=== PATIENT | female | born 1965 | race Caucasian/White ===

== ENCOUNTER → 2017-12-15 12:48 | Outpatient (CLI) | payer BC, SELFPAY ==
--- NOTE | 2017-12-15 | DI.MG.S_ITS ---
BILATERAL DIGITAL SCREENING MAMMOGRAM 3D/2D WITH CAD: 12/15/2017 CLINICAL: Routine screening. Family history of breast cancer. Comparison is made to exam dated: 03/03/2015 mammogram - [facility]. The tissue of both breasts is extremely dense, which lowers the sensitivity of mammography. Current study was also evaluated with a Computer Aided Detection (CAD) system. No significant masses, calcifications, or other findings are seen in either breast. There has been no significant interval change. IMPRESSION: NEGATIVE There is no mammographic evidence of malignancy. A 1 year screening mammogram is recommended. This exam was interpreted at Station ID: [id number]. NOTE: For mammograms, a report in lay terms will be sent to the patient. Approximately 15% of breast malignancies will not be visualized mammographically. In the management of a palpable breast mass, a negative mammogram must not discourage biopsy of a clinically suspicious lesion. Electronically Signed By: Jv mcgill/jose cruz:12/15/2017 16:31:28 letter sent: Normal Exam ACR BI-RADS Category 1: Negative [id number]
== END ==
PROVIDERS: Visit Provider Nurse Practitioner Family
DX: Z12.31 Encounter for screening mammogram for malignant neoplasm of breast (principal); Z80.3 Family history of malignant neoplasm of breast
CPT/HCPCS: 77063; 77067

== ENCOUNTER → 2017-12-20 14:09 | Outpatient (CLI) | payer BC, SELFPAY | PROVIDERS: Visit Provider Nurse Practitioner Family | DX: M85.852 Other specified disorders of bone density and structure, left thigh (principal); Z78.0 Asymptomatic menopausal state; F17.200 Nicotine dependence, unspecified, uncomplicated | CPT/HCPCS: 77080 ==

== ENCOUNTER → 2019-04-11 10:53 | Outpatient (CLI) | payer OTHER, SELFPAY ==
--- NOTE | 2019-04-11 10:57 | DI.RAD.S_ITS ---
PROCEDURE: XR CHEST 2V INDICATIONS: orthopnea, murmur, r/o CHF TECHNIQUE: 2 views of the chest were acquired. COMPARISON: None. FINDINGS: Surgical changes and devices: None. Lungs and pleura: There is mild cephalization of pulmonary vasculature and mild interstitial prominence including basilar Natalie B-lines compatible with CHF. No pleural effusions or pneumothorax. Mediastinum: Mediastinal contours are normal. Heart size is normal. Bones and chest wall: No suspicious bony abnormalities. Soft tissues appear unremarkable. IMPRESSION: CHF. Dictated by: Lina Epperson MD, PhD on 04/11/2019 at 11:46 Approved by: Lina Epperson MD, PhD on 04/11/2019 at 11:47
[2019-04-11 12:01] LABS: Add Manual Diff / Slide Review NO; Basophils Absolute Auto 100 /uL (0-100); Eosinophils Absolute Auto 200 /uL (0-450); Eosinophils Percent Auto 2.5 % (2-4); Hematocrit 42.3 % (36-46); Hemoglobin 14.6 g/dL (12.0-16.0); Lymphocytes Absolute Auto 1900 /uL (1100-4500); Lymphocytes Percent Auto 22.5 % (25-40); Mean Corpuscular HGB Conc 34.4 % (30-36); Mean Corpuscular Hemoglobin 33.4 PG (26-34); Mean Corpuscular Volume 97.2 fL (80-100); Monocytes Absolute Auto 600 /uL (0-900); Monocytes Percent Auto 7.6 % (3-14); Neutrophils Absolute Auto 5500 /uL (1500-7000); Neutrophils Percent Auto 66.4 % (50-75); Platelet Count 342 X10^3/uL (150-400); Red Blood Cell Count 4.35 X10^6/uL (4.0-5.2); Red Cell Distribution Width 12.7 % (11.6-14.8); White Blood Cell Count 8.3 X10^3/uL (4.5-11.0)
[2019-04-11 12:30] LABS: Alanine Aminotransferase 16 IU/L (<35); Albumin 4.4 g/dL (3.5-5.0); Albumin Globulin Ratio 1.7 (1.0-2.8); Alkaline Phosphatase 67 U/L (38-126); Aspartate Aminotransferase 22 IU/L (14-36); BUN Creatinine Ratio 21.3 (6-22); Bilirubin Total 0.9 mg/dL (0.2-1.3); Blood Urea Nitrogen 17 mg/dL (7-17); Calcium 10.1 mg/dL (8.4-10.2); Carbon Dioxide 28 mmol/L (22-32); Chloride 106 mmol/L (98-107); Estimated Glomerular Filt Rate > 60.0 mL/min (>60); Globulin 2.6 g/dL (1.7-4.1); Glucose 114 mg/dL (70-100); HEMOLYSIS < 15 (0-50); Potassium 5.3 mmol/L (3.4-5.1); Sodium 143 mmol/L (137-145)
[2019-04-11 12:36] LABS: B Type Natriuretic Peptide 139 (<100)
== END ==
PROVIDERS: Family Provider Nurse Practitioner Family; PCP Nurse Practitioner Family; Visit Provider Physician Assistant
DX: R06.01 Orthopnea (principal); R01.1 Cardiac murmur, unspecified; I50.9 Heart failure, unspecified
CPT/HCPCS: 36415; 71046; 80053; 83880; 85025

== ENCOUNTER 2019-04-12 14:47 | Emergency (ER) | payer OTHER, SELFPAY ==
[2019-04-12 14:55] VITALS: BP 129/96; PULSE 99; RESP 18; TEMP 37.5; O2SAT 94; BMI 28.8
--- NOTE | 2019-04-12 16:34 | DI.RAD.S_ITS ---
PROCEDURE: XR CHEST 1V INDICATIONS: SHORTNESS OF BREATH TECHNIQUE: One view of the chest was acquired. COMPARISON: [facility], CR, XR CHEST 2V, 04/11/2019, 10:58. FINDINGS: Surgical changes and devices: None. Lungs and pleura: Pulmonary vascular congestion is seen. No definite focal infiltrate. No pleural effusions or pneumothorax. Mediastinum: Mediastinal contours appear normal. Heart size is enlarged. Bones and chest wall: No suspicious bony lesions. Overlying soft tissues appear unremarkable. IMPRESSION: Cardiomegaly and mild congestion. No definite focal infiltrate. Dictated by: Alexander Maxwell M.D. on 04/12/2019 at 17:03 Approved by: Alexander Maxwell M.D. on 04/12/2019 at 17:06
[2019-04-12 16:55] LABS: Add Manual Diff / Slide Review NO; Basophils Absolute Auto 100 /uL (0-100); Basophils Percent Auto 1.2 % (0-2); Eosinophils Absolute Auto 200 /uL (0-450); Eosinophils Percent Auto 2.6 % (2-4); Hematocrit 43.5 % (36-46); Hemoglobin 14.8 g/dL (12.0-16.0); Lymphocytes Absolute Auto 2700 /uL (1100-4500); Lymphocytes Percent Auto 32.1 % (25-40); Mean Corpuscular HGB Conc 33.9 % (30-36); Mean Corpuscular Hemoglobin 32.6 PG (26-34); Mean Corpuscular Volume 96.2 fL (80-100); Monocytes Absolute Auto 700 /uL (0-900); Monocytes Percent Auto 7.9 % (3-14); Neutrophils Absolute Auto 4600 /uL (1500-7000); Neutrophils Percent Auto 56.2 % (50-75); Platelet Count 335 X10^3/uL (150-400); Red Blood Cell Count 4.52 X10^6/uL (4.0-5.2); Red Cell Distribution Width 12.9 % (11.6-14.8); White Blood Cell Count 8.3 X10^3/uL (4.5-11.0)
[2019-04-12] MEDS: FUROSEMIDE 40 MG/4 ML VIAL IV (16:55)
[2019-04-12 16:57] VITALS: BP 129/96; PULSE 87; O2SAT 99
[2019-04-12 17:08] LABS: Alanine Aminotransferase 17 IU/L (<35); Albumin 4.6 g/dL (3.5-5.0); Albumin Globulin Ratio 1.4 (1.0-2.8); Alkaline Phosphatase 70 U/L (38-126); Aspartate Aminotransferase 26 IU/L (14-36); BUN Creatinine Ratio 22.5 (6-22); Bilirubin Total 0.7 mg/dL (0.2-1.3); Blood Urea Nitrogen 18 mg/dL (7-17); Calcium 9.5 mg/dL (8.4-10.2); Carbon Dioxide 26 mmol/L (22-32); Chloride 103 mmol/L (98-107); Creatine Kinase 44 U/L (30-135); Estimated Glomerular Filt Rate > 60.0 mL/min (>60); Globulin 3.2 g/dL (1.7-4.1); Glucose 103 mg/dL (70-100); HEMOLYSIS < 15 (0-50); Magnesium 2.1 mg/dL (1.6-2.3); Potassium 3.8 mmol/L (3.4-5.1); Sodium 138 mmol/L (137-145); Total Protein 7.8 g/dL (6.3-8.2)
[2019-04-12 17:20] LABS: B Type Natriuretic Peptide < 100 (<100); Troponin I < 0.012 ng/mL (0.01-0.034)
[2019-04-12 17:25] LABS: Procalcitonin < 0.05 ng/mL (<0.5)
--- NOTE | 2019-04-12 17:57 | ED.SOB ---
HPI - SOB/Dyspnea General Chief Complaint: Upper Respiratory Symptoms Stated Complaint: sent by [facility] for US for heart mumur Time Seen by Provider: 04/12/19 14:55 Source: patient Mode of arrival: Family Vehicle Limitations: no limitations History of Present Illness HPI Narrative: Patient is a 54-year-old female reports from walk-in clinic for ultrasound of her heart. She has progressively had increasing no worsening orthopnea over the last 5-6 nights. She does have some minor shortness of breath with exertion. She has never quite had this before. She has some minor chest discomfort but no real chest pain or palpitations. She denies any recent travel. She says she has been able to work she feels better sitting up and standing rather than lying down. She was told by walk-in clinic provider yesterday that she had a significant murmur she went back today to I guess establish care with PCP and sent emergently to the ER for echocardiogram. She had blood work and chest x-ray done yesterday chest x-ray did reveal CHF she had a BNP elevation of 139. MD Complaint: shortness of breath Exacerbating factors: lying flat Related Data Home oxygen amount: none Previous Rx's Medication Instructions Recorded furosemide [Lasix] 20 mg PO DAILY #3 tab 04/12/19 Allergies Allergy/AdvReac Type Severity Reaction Status Date / Time No Known Drug Allergies Allergy Unverified 04/12/19 13:52 Review of Systems Review of Systems Narrative: GENERAL: Denies chills, fatigue, malaise, fever, sweats, travel HEENT: Denies sinus pain, ear pain, sore throat, difficulty swallowing, neck pain RESPIRATORY: See HPI CARDIOVASCULAR: Denies chest pain, palpitations, orthopnea, edema GASTROINTESTINAL: Denies nausea, vomiting, abdominal pain, diarrhea, constipation, melena. : Denies dysuria, frequency, incontinence, hematuria, urinary retention, flank pain. MUSCULOSKELETAL: Denies weakness, joint pain, or bony pain SKIN: No rash, no erythema, no pruritus NEUROLOGIC: Denies weakness, dizziness, headache, numbness, change in speech, confusion PSYCHIATRIC: No concerning psychosocial issues. 12 point review of systems is negative except for those stated above and HPI Patient History Medical History Patient denies significant medical history (Acute) Social History Smoking Status: Current every day smoker second hand exposure: No alcohol intake: current substance use type: marijuana Smoking Status: Current every day smoker Exam Initial Vital Signs Initial Vital Signs: Vital Signs Temperature 99.5 F 04/12/19 14:55 Pulse Rate 99 H 04/12/19 14:55 Respiratory Rate 18 04/12/19 14:55 Blood Pressure 129/96 H 04/12/19 14:55 Pulse Oximetry 94 04/12/19 14:55 GENERAL: Well-appearing, well-nourished and in no acute distress. HEENT: Head atraumatic,EOMI, pupils reactive, face symmetric CARDIOVASCULAR: Regular rate and rhythm 6/6 systolic murmur RESPIRATORY: Breath sounds equal bilaterally, no wheezes rales or rhonchi. ABDOMEN: Soft, nontender. Normoactive bowel sounds all 4 quadrants. No guarding or rebound. EXTREMITIES: Normal range of motion, no clubbing or edema. Neurovascularly intact NEUROLOGICAL: Alert and oriented x4.Normal gait and speech. Cranial nerves II through XII grossly intact. SKIN: Warm, dry, no laceration, no petechiae, no rashes or lesions. Course Orders Ordered: ED Orders 04/12/19 16:33 Consult to Respiratory Therapy Evaluate & Treat EKG-12 Lead Stat 04/12/19 16:34 XR chest 1V Stat 04/12/19 16:48 B Type Natriuretic Peptide Stat Complete Blood Count AUTO DIFF Stat Comprehensive Metabolic Panel Stat Magnesium Stat Procalcitonin Stat Troponin & CK Cardiac Panel Stat Discontinued Medications Furosemide (Lasix) 40 mg IV NOW ONE Stop: 04/12/19 16:34 Last Admin: 04/12/19 16:55 Dose: 40 mg Documented by: TOMASA Vital Signs Vital signs: Vital Signs - 8 hr 04/12/19 14:55 04/12/19 16:57 04/12/19 18:20 Temperature 99.5 F Pulse Rate 99 H 87 100 H Respiratory Rate 18 18 Blood Pressure 129/96 H Blood Pressure [Right Arm] 129/96 H 119/101 H Pulse Oximetry 94 99 99 MDM - SOB/Dyspnea Lab Data Attestation: I reviewed the patient's lab results. Result diagrams: 04/12/19 16:48 04/12/19 16:48 Labs: Lab Results 04/12/19 04/12/19 04/12/19 Range/Units 16:48 16:48 16:48 WBC 8.3 (4.5-11.0) X10^3/uL RBC 4.52 (4.0-5.2) X10^6/uL Hgb 14.8 (12.0-16.0) g/dL Hct 43.5 (36-46) % MCV 96.2 (80-100) fL MCH 32.6 (26-34) PG MCHC 33.9 (30-36) % RDW 12.9 (11.6-14.8) % Plt Count 335 (150-400) X10^3/uL Neut % (Auto) 56.2 (50-75) % Lymph % (Auto) 32.1 (25-40) % [place] % (Auto) 7.9 (3-14) % Eos % (Auto) 2.6 (2-4) % Baso % (Auto) 1.2 (0-2) % Neut # (Auto) 4600 (2374-9481) /uL Lymph # (Auto) 2700 (5982-9837) /uL [place] # (Auto) 700 (0-900) /uL Eos # (Auto) 200 (0-450) /uL Baso # (Auto) 100 (0-100) /uL Sodium 138 (137-145) mmol/L Potassium 3.8 D (3.4-5.1) mmol/L Chloride 103 (98-107) mmol/L Carbon Dioxide 26 (22-32) mmol/L BUN 18 H (7-17) mg/dL Creatinine 0.80 (0.52-1.04) mg/dL Estimated GFR > 60.0 (>60) mL/min BUN/Creatinine Ratio 22.5 H (6-22) Glucose 103 H (70-100) mg/dL Calcium 9.5 (8.4-10.2) mg/dL Magnesium 2.1 (1.6-2.3) mg/dL Total Bilirubin 0.7 (0.2-1.3) mg/dL AST 26 (14-36) IU/L ALT 17 (<35) IU/L Alkaline Phosphatase 70 (38-126) U/L Total Creatine Kinase 44 (30-135) U/L CK-MB (CK-2) TNP CK-MB (CK-2) Rel Index TNP Troponin I < 0.012 (0.01-0.034) ng/mL B-Natriuretic Peptide < 100 (<100) Total Protein 7.8 (6.3-8.2) g/dL Albumin 4.6 (3.5-5.0) g/dL Globulin 3.2 (1.7-4.1) g/dL Albumin/Globulin Ratio 1.4 (1.0-2.8) Procalcitonin < 0.05 (<0.5) ng/mL Imaging Data Chest x-ray: Radiologist's impression: PROCEDURE: XR CHEST 1V INDICATIONS: SHORTNESS OF BREATH TECHNIQUE: One view of the chest was acquired. COMPARISON: [facility], , XR CHEST 2V, 04/11/2019, 10:58. FINDINGS: Surgical changes and devices: None. Lungs and pleura: Pulmonary vascular congestion is seen. No definite focal infiltrate. No pleural effusions or pneumothorax. Mediastinum: Mediastinal contours appear normal. Heart size is enlarged. Bones and chest wall: No suspicious bony lesions. Overlying soft tissues appear unremarkable. IMPRESSION: Cardiomegaly and mild congestion. No definite focal infiltrate. Dictated by: Alexander Maxwell M.D. on 04/12/2019 at 17:03 Approved by: Alexander Maxwell M.D. on 04/12/2019 at 17:06 ECG Data Attestation: I personally reviewed and interpreted this ECG as follows: Prior ECG tracings: not available for review Interpretation: Normal sinus rhythm rate 93, DE 143 QRS 101, QTC [address] elevation depression or T-wave inversion MDM Narrative Medical decision making narrative: Patient does have an obvious new systolic murmur with signs and symptoms of new onset congestive heart failure. At this discussed case with Dr. Sandoval she is not hypoxic she is hemodynamically stable. She has established care with Kalyani Del Rio, at this time does not meet inpatient criteria. Patient states that [facility] is not in network and she is trying to get an in network provider. She is given 1 dose of Lasix in the ED she has urinated multiple times. At this time I have explained to her that she definitely needs further outpatient evaluation she needs an echocardiogram she may require surgery in the future depending on results of echocardiogram. She understands this she is happy to not stay in the hospital, but understands she needs to return if her symptoms are worsened I discussed all findings with the patient, Education has been performed regarding treatment plan, diagnosis, warning signs and symptoms and all concerns have been addressed. Verbally agree with and understood all of the above. Discharge Plan Departure Patient Disposition: Home Clinical Impression: Congestive heart failure Qualifiers: Heart failure type: other Qualified Code(s): I50.9 - Heart failure, unspecified Discharge Date/Time: 04/12/19 18:24 Instructions: DI for Heart Failure, DI for Heart Murmur-Adult Activity Restrictions/Additional Instructions: *You have been diagnosed with the he likely have congestive heart failure due to a severe murmur. *What to do: You need more testing of your heart including echocardiogram likely Cardiology referral. *Continue to take medications as directed Lasix 20 mg once a day start tomorrow morning for the next 3 days-->SENT TO [facility] *Follow up with your primary care provider in 2-3 days *Return to ER if you should have increasing chest pain, shortness of breath palpitations or any new, worsening or concerning symptoms Prescriptions: New furosemide [Lasix] 20 mg tablet 20 mg PO DAILY Qty: 3 RF: 0 Referrals: Favian Del Rio ARNP [Primary Care Provider] -
[2019-04-12 18:20] VITALS: BP 119/101; PULSE 100; RESP 18; O2SAT 99
== END 2019-04-12 18:24 | disposition home or self-care (01) ==
PROVIDERS: Emergency Provider Emergency Medicine; Family Provider Nurse Practitioner Family; PCP Nurse Practitioner Family
DX: I50.9 Heart failure, unspecified (principal)
CPT/HCPCS: 36415; 71045; 80053; 82550; 83735; 83880; 84145; 84484; 85025; 93005; 93010; 96374; 99284; 99285; J1940

== ENCOUNTER → 2019-04-16 13:23 | Outpatient (CLI) | payer OTHER, SELFPAY ==
--- NOTE | 2019-04-16 13:25 | DI.ECHO.S_ITS ---
[facility]---------+ [facility] +---------+ : : [address] [place] [place] : : : : [id number] : : : : Phone: [phone]+ Echocardiogram Report + + :Name: ROBERTO GLASS Study Date: 04/16/2019 Height: 64 in : :[facility] Weight: 163 lb : : Gender: Female BSA: 1.8 m2 : :: 1965 Age: 54 yrs BP: 134/74 mmHg: :Reason For Study: MURMUR : : Performed By: Tem Staff : :Referring: ROSENDO HAWK : + + Interpretation Summary 1) The left ventricle is moderate-severely dilated with normal wall motion and normal systolic function (EF 65-70%). 2) The right ventricle is normal in size and function. 3) The left atrium is severely dilated. 4) Severe prolapse of the posterior leaflet of the mitral valve. Unable to exclude flail leaflet. 5) There is severe mitral regurgitation, directed anteriorly. 6) Normal pulmonary artery pressures. 7) No prior Echo available for comparison. Recommend cardiology consult. Findings discussed with Dr. Rosendo Hawk. Procedure: A two-dimensional transthoracic echocardiogram with color flow and Doppler was performed. The study quality was technically adequate. There is no prior echocardiogram noted for this patient. The patient was in normal sinus rhythm during the exam. Left Ventricle: The left ventricle is moderate-severely dilated. There is normal left ventricular wall thickness. Left ventricular systolic function is normal. The ejection fraction is estimated to be 65-70%. Left ventricular wall motion is normal. Right Ventricle: The right ventricle is normal in size and function. Atria: The left atrium is severely dilated. Right atrial size is normal. The interatrial septum is intact with no evidence for an atrial septal defect. Mitral Valve: The mitral valve leaflets appear mildly thickened, but open well. Severe prolapse of the posterior leaflet of the mitral valve. Unable to exclude flail leaflet. There is severe mitral regurgitation. Aortic Valve: The aortic valve is trileaflet. The aortic valve opens well. No aortic regurgitation is present. Tricuspid Valve: The tricuspid valve is normal in structure and function. There is trace tricuspid regurgitation. The right ventricular systolic pressure is estimated to be at least 14 mmHg based on an estimated right atrial pressure of 3 mm Hg. Pulmonic Valve: The pulmonic valve is normal in structure and function. There is trace pulmonic regurgitation. Great Vessels: The aortic root is normal size. The dimensions of the ascending aorta are normal. The pulmonary artery is normal size. The IVC is of normal diameter and collapses greater than 50% with a sniff. This suggests a low right atrial pressure of 3 mm Hg. Pericardium/ Pleura There is no pericardial effusion. There is no pleural effusion. MMode/2D Measurements & Calculations LVIDd: 6.1 cm LVOT diam: 2.2 cm LVIDs: 3.4 cm Ao root diam: 3.1 cm FS: 44.9 % Aortic Jxn: 2.6 cm EPSS: 0.28 cm Ao Arch Diam (Prox Trans): 3.1 cm IVSd: 1.1 cm LVPWd: 0.94 cm LV dutton. diameter/BSA (cm/m^2): 3.4 LV sys. diameter/BSA (cm/m^2): 1.9 LA A2 area: 31.5 cm2 RA long axis: 5.0 cm LA A4 area: 34.1 cm2 RA area: 12.0 cm2 LA length (vol): 6.5 cm RA vol: 24.7 ml LA vol: 140.4 ml RA : 13.8 ml/m2 LA vol index: 78.3 ml/m2 TAPSE: 2.0 cm Doppler Measurements & Calculations Ao V2 max: 148.4 cm/sec LVOT Max Shailesh: 108.6 cm/sec Ao V2 mean: 92.4 cm/sec LV V1 max P.7 mmHg Ao max P.8 mmHg LV V1 VTI: 14.9 cm Ao mean P.2 mmHg TWYLA(I,D): 2.4 cm2 Ao V2 VTI: 23.1 cm TWYLA(V,D): 2.8 cm2 sev ratio: 0.64 TWYLA indexed to BSA (cm^2/m^2): 1.4 MV E max shailesh: 185.0 cm/sec TR max shailesh: 166.2 cm/sec MV A max shailesh: 65.7 cm/sec TR max P.1 mmHg MV E/A: 2.8 PA V2 max: 59.2 cm/sec Med Peak E' Shailesh: 11.1 cm/sec PA V2 mean: 46.1 cm/sec E/E' med: 16.6 PA mean P.92 mmHg Lat Peak E' Shailesh: 8.6 cm/sec PA Accel Time: 0.14 sec E/E' lat: 21.4 E/e' average: 19.0 MV dec time: 0.25 sec SV(LVOT): 56.1 ml Reading Physician:04:35 PM
== END ==
PROVIDERS: Family Provider Nurse Practitioner Family; PCP Nurse Practitioner Family; Visit Provider Student in an Organized Health Care Education/Training Program
DX: I50.9 Heart failure, unspecified (principal); R01.1 Cardiac murmur, unspecified; I34.1 Nonrheumatic mitral (valve) prolapse; I34.0 Nonrheumatic mitral (valve) insufficiency
CPT/HCPCS: 93306

== ENCOUNTER → 2019-07-01 07:04 | Outpatient (CLI) | payer OTHER, SELFPAY | PROVIDERS: Family Provider Nurse Practitioner Family; PCP Nurse Practitioner Family; Referring Provider Thoracic Surgery (Cardiothoracic Vascular Surgery); Visit Provider Thoracic Surgery (Cardiothoracic Vascular Surgery) | DX: Z01.810 Encounter for preprocedural cardiovascular examination (principal); I34.0 Nonrheumatic mitral (valve) insufficiency | CPT/HCPCS: 36415; 85014 ==

== ENCOUNTER → 2019-09-05 07:46 | Outpatient (CLI) | payer OTHER, SELFPAY ==
[2019-09-05 09:57] LABS: BUN Creatinine Ratio 17.1 (6-22); Blood Urea Nitrogen 14 mg/dL (7-17); Calcium 10.2 mg/dL (8.4-10.2); Carbon Dioxide 26 mmol/L (22-32); Chloride 95 mmol/L (98-107); Estimated Glomerular Filt Rate > 60.0 mL/min (>60); Glucose 124 mg/dL (70-100); HEMOLYSIS < 15 (0-50); Potassium 4.7 mmol/L (3.4-5.1); Sodium 133 mmol/L (137-145)
== END ==
PROVIDERS: Family Provider Nurse Practitioner Family; PCP Nurse Practitioner Family; Referring Provider Thoracic Surgery (Cardiothoracic Vascular Surgery); Visit Provider Thoracic Surgery (Cardiothoracic Vascular Surgery)
DX: Z79.899 Other long term (current) drug therapy (principal); Z98.890 Other specified postprocedural states
CPT/HCPCS: 36415; 80048

== ENCOUNTER → 2019-11-26 15:50 | Outpatient (CLI) | payer OTHER, SELFPAY ==
--- NOTE | 2019-11-26 | DI.ECHO.S_ITS ---
[facility]---------+ [facility] +---------+ : : [address] : [address] : : : : [id number] : : : : Phone: [phone]+ Echocardiogram Report + + :Name: ROBERTO GLASS Study Date: 11/26/2019 Height: 64 in : :[facility] Weight: 167 lb : : Gender: Female BSA: 1.8 m2 : :: 1965 Age: 54 yrs BP: 132/86 mmHg: :Reason For Study: Mitral Insufficiency : :Ordering Physician: SAVAGE, : :SIRISHA Performed By: Naomy Arteaga : :Referring: SIRISHA WAN : + + Interpretation Summary Normal sinus rhythm. Normal LV size and wall thickness. There is subtle septal dyssynchrony consistent with postoperative state; all other segments demonstrate mild global hypokinesis. Ejection fraction is estimated at 40-45%. Mitral valve has been repaired by history with annuloplasty ring, gordon cords and P2 scallop cleft closure. There is still mild residual eccentric anterior septally directed mitral regurgitation. Compared to prior study April 16, 2019 posterior leaflet prolapse is no longer present. Mitral valve repair is new. Unfortunately, cardiomyopathy is newly described. Procedure: A two-dimensional transthoracic echocardiogram with color flow and Doppler was performed in limited views only. The study quality was technically adequate. Comparison is made with the echocardiogram of 04/16/2019. The heart rate ranged between 77-83 bpm during the study. Left Ventricle: The left ventricle is normal in size. The estimated left ventricular end diastolic volume is 80 ml. The ejection fraction is estimated to be 40-45%. Septal motion is consistent with post-operative state. Right Ventricle: The right ventricle is normal size. Atria: The left atrial size is normal. Right atrial size is normal. There is no Doppler evidence for an interatrial shunt. Mitral Valve: An annuloplasty ring is noted in the mitral position. There is mild to moderate mitral regurgitation. The mitral regurgitant jet is eccentrically directed. Pericardium/ Pleura There is no pericardial effusion. There is no pleural effusion. MMode/2D Measurements & Calculations LVIDd: 5.2 cm LA A2 area: 20.8 cm2 LVIDs: 4.2 cm LA A4 area: 13.2 cm2 FS: 19.8 % LA length (vol): 4.2 cm IVSd: 1.4 cm LA vol: 55.0 ml LVPWd: 0.97 cm LA vol index: 30.3 ml/m2 LV dutton. diameter/BSA (cm/m^2): 2.9 LV sys. diameter/BSA (cm/m^2): 2.3 RA long axis: 5.0 cm RVD1 (basal): 2.9 cm RA area: 13.0 cm2 RA vol: 29.2 ml RA : 16.1 ml/m2 Doppler Measurements & Calculations MV E max odalis: 107.9 cm/sec MV V2 mean: 94.8 cm/sec MV A max odalis: 121.5 cm/sec MV mean P.9 mmHg MV E/A: 0.89 MV V2 VTI: 31.8 cm MV dec time: 0.19 sec MR ERO: 0.14 cm2 MR PISA: 1.8 cm2 MR flow rate: 67.4 cm3/sec MR PISA radius: 0.54 cm Electronically signed by: Sirisha Wan M.D. on Reading Physician:11/28/2019 01:50 PM
== END ==
PROVIDERS: Family Provider Nurse Practitioner Family; PCP Nurse Practitioner Family; Referring Provider Internal Medicine; Visit Provider Internal Medicine
DX: I34.0 Nonrheumatic mitral (valve) insufficiency (principal); I42.9 Cardiomyopathy, unspecified; Z98.890 Other specified postprocedural states
CPT/HCPCS: 93307

== ENCOUNTER → 2019-12-19 10:35 | Outpatient (CLI) | payer OTHER, SELFPAY ==
[2019-12-19 11:43] LABS: BUN Creatinine Ratio 25.3 (6-22); Blood Urea Nitrogen 20 mg/dL (7-17); Calcium 9.9 mg/dL (8.4-10.2); Carbon Dioxide 24 mmol/L (22-32); Chloride 102 mmol/L (98-107); Estimated Glomerular Filt Rate > 60.0 mL/min (>60); Glucose 114 mg/dL (70-100); HEMOLYSIS < 15 (0-50); Potassium 4.7 mmol/L (3.4-5.1); Sodium 135 mmol/L (137-145)
== END ==
PROVIDERS: Family Provider Nurse Practitioner Family; PCP Internal Medicine; Referring Provider Internal Medicine; Visit Provider Internal Medicine
DX: I42.8 Other cardiomyopathies (principal)
CPT/HCPCS: 36415; 80048

== ENCOUNTER → 2020-11-16 14:12 | Outpatient (CLI) | payer OTHER, SELFPAY ==
--- NOTE | 2020-11-16 14:15 | DI.MG.S_ITS ---
BILATERAL DIGITAL SCREENING MAMMOGRAM 3D/2D WITH CAD: 11/16/2020 CLINICAL: Family history of breast cancer. Routine screening. Comparison is made to exams dated: 12/15/2017 mammogram - [facility] and 03/03/2015 mammogram - [facility]. The tissue of both breasts is heterogeneously dense. This may lower the sensitivity of mammography. Current study was also evaluated with a Computer Aided Detection (CAD) system. There are benign post operative findings in the right breast. No significant masses, calcifications, or other findings are seen in either breast. There has been no significant interval change. IMPRESSION: BENIGN There is no mammographic evidence of malignancy. A 1 year screening mammogram is recommended. This exam was interpreted at Station ID: [id number]. NOTE: For mammograms, a report in lay terms will be sent to the patient. Approximately 15% of breast malignancies will not be visualized mammographically. In the management of a palpable breast mass, a negative mammogram must not discourage biopsy of a clinically suspicious lesion. Electronically Signed By: Michele block/jose cruz:11/16/2020 16:58:36 letter sent: Normal Exam ACR BI-RADS Category 2: Benign Finding(s) [id number]
== END ==
PROVIDERS: Family Provider Nurse Practitioner Family; PCP Internal Medicine; Referring Provider Internal Medicine; Visit Provider Internal Medicine
DX: Z12.31 Encounter for screening mammogram for malignant neoplasm of breast (principal); Z80.3 Family history of malignant neoplasm of breast
CPT/HCPCS: 77063; 77067

== ENCOUNTER → 2021-01-28 13:45 | Outpatient (CLI) | payer OTHER, SELFPAY ==
[2021-01-28 15:24] LABS: BUN Creatinine Ratio 20.9 (6-22); Blood Urea Nitrogen 18 mg/dL (7-17); Carbon Dioxide 30 mmol/L (22-32); Chloride 104 mmol/L (98-107); Estimated Glomerular Filt Rate > 60.0 mL/min (>60); Glucose 106 mg/dL (70-100); HEMOLYSIS < 15 (0-50); Potassium 4.5 mmol/L (3.4-5.1); Sodium 140 mmol/L (137-145)
== END ==
PROVIDERS: Family Provider Nurse Practitioner Family; PCP Internal Medicine; Referring Provider Internal Medicine; Visit Provider Internal Medicine
DX: I42.8 Other cardiomyopathies (principal)
CPT/HCPCS: 36415; 80048; 83735

== ENCOUNTER → 2022-03-07 13:41 | Outpatient (CLI) | payer OTHER, SELFPAY ==
--- NOTE | 2022-03-07 | DI.ECHO.S_ITS ---
[facility]---------+ [facility] +---------+ : : [address] : [place] : : : : [id number] : : : : Phone: [phone]+ Echocardiogram Report + + :Name: ROBERTO GLASS Study Date: 03/07/2022 Height: 64 in : :[facility] ReadingLocation: Weight: 175 lb : : Gender: Female BSA: 1.8 m2 : :: 1965 Age: 57 yrs BP: 130/98 mmHg: :Reason For Study: Congestive Heart Failure : :Ordering Physician: BRINA, : :REGINA Performed By: Jose Shirley : :Referring: REGINA GONSALVES : + + Interpretation Summary Normal sinus rhythm. Normal LV size and wall thickness. There is subtle septal dyssynchrony consistent with postoperative state; EF is 55-60%. Mitral valve has been repaired by history with annuloplasty ring, gordon cords and P2 scallop cleft closure. There is still mild residual eccentric anterior septally directed mitral regurgitation. Compared to prior study obtained 11/26/2019, LV function is much more dynamic. Procedure: A two-dimensional transthoracic echocardiogram with color flow and Doppler was performed. The study quality was technically adequate. Comparison is made with the echocardiogram of 11/26/2019. The patient was in normal sinus rhythm during the exam. Left Ventricle: The left ventricle is normal in size and wall thickness. Left ventricular systolic function is normal. The ejection fraction is estimated to be 55-60%. There are no focal wall motion abnormalities. Diastolic function could not be accurately assessed due to confounding valvular disease. Right Ventricle: The right ventricle is normal in size and function. Atria: Both atria are normal in size. The interatrial septum grossly appears intact with no obvious evidence for an atrial septal defect. Mitral Valve: An annuloplasty ring is noted in the mitral position. The mitral valve mean gradient is 2 mmHg. There is mild mitral regurgitation. The mitral regurgitant jet is eccentrically directed. Aortic Valve: The aortic valve is normal in structure and function. No aortic regurgitation is present. Tricuspid Valve: The tricuspid valve is normal in structure and function. There is trace tricuspid regurgitation. The right ventricular systolic pressure is estimated to be at least 20 mmHg based on an estimated right atrial pressure of 3 mm Hg. Pulmonic Valve: The pulmonic valve is not well seen, but is grossly normal. There is trace pulmonic regurgitation. Great Vessels: The aortic root is normal size. The dimensions of the ascending aorta are normal. The IVC is of normal diameter and collapses greater than 50% with a sniff. This suggests a low right atrial pressure of 3 mm Hg. Pericardium/ Pleura There is no pericardial effusion. There is no pleural effusion. MMode/2D Measurements & Calculations LVIDd: 5.2 cm LVOT diam: 2.3 cm LVIDs: 3.5 cm Ao root diam: 3.2 cm FS: 32.7 % asc Aorta Diam: 3.2 cm IVSd: 0.90 cm LVPWd: 1.0 cm LV dutton. diameter/BSA (cm/m^2): 2.8 LV sys. diameter/BSA (cm/m^2): 1.9 LA dimension: 3.6 cm TAPSE_phl: 1.7 cm LA A2 area: 17.9 cm2 LA A4 area: 13.1 cm2 LA length (vol): 4.7 cm LA vol: 42.2 ml LA vol index: 22.8 ml/m2 Doppler Measurements & Calculations Ao V2 max: 96.1 cm/sec LVOT Max Shailesh: 103.0 cm/sec Ao V2 mean: 65.7 cm/sec LV V1 max P.2 mmHg Ao max P.0 mmHg LV V1 VTI: 19.7 cm Ao mean P.0 mmHg TWYLA(I,D): 4.3 cm2 Ao V2 VTI: 18.9 cm TWYLA(V,D): 4.5 cm2 sev ratio: 1.0 TWYLA indexed to BSA (cm^2/m^2): 2.3 MV E max shailesh: 122.0 cm/sec TR max shailesh: 204.0 cm/sec MV A max shailesh: 103.0 cm/sec TR max P.6 mmHg MV E/A: 1.2 Med Peak E' Shailesh: 6.1 cm/sec E/E' med: 20.0 Lat Peak E' Shailesh: 10.0 cm/sec E/E' lat: 12.2 E/e' average: 16.1 MV dec time: 0.25 sec MVA(VTI): 2.3 cm2 MV V2 mean: 70.0 cm/sec SV(LVOT): 81.8 ml MV mean P.0 mmHg MV V2 VTI: 34.9 cm AV VR_phl: 1.1 MV P1/2t-pr_phl: 72.0 msec TWYLA(VTI)/BSA_phl: 2.3 Electronically signed by: Kiley Alves M.D. on Reading Physician:03/11/2022 02:19 PM
--- NOTE | 2022-03-07 | DI.MG.S_ITS ---
BILATERAL DIGITAL SCREENING MAMMOGRAM 3D/2D WITH CAD: 03/07/2022 CLINICAL: Routine screening. Family history of breast cancer. Comparison is made to exams dated: 11/16/2020 mammogram, 12/15/2017 mammogram - [facility], and 03/03/2015 mammogram - [facility]. Both breasts are heterogeneously dense, which may obscure small masses (category c / 51-75% glandular tissue). Current study was also evaluated with a Computer Aided Detection (CAD) system. There are benign post operative findings in the right breast. No significant masses, calcifications, or other findings are seen in either breast. There has been no significant interval change. IMPRESSION: BENIGN There is no mammographic evidence of malignancy. A 1 year screening mammogram is recommended. This exam was interpreted at Station ID: [id number]. NOTE: For mammograms, a report in lay terms will be sent to the patient. Approximately 15% of breast malignancies will not be visualized mammographically. In the management of a palpable breast mass, a negative mammogram must not discourage biopsy of a clinically suspicious lesion. Electronically Signed By: Michele block/jose cruz:03/07/2022 16:07:45 letter sent: Normal Exam ACR BI-RADS Category 2: Benign Finding(s) 3342F
== END ==
PROVIDERS: Family Provider Nurse Practitioner Family; PCP Internal Medicine; Referring Provider Internal Medicine; Visit Provider Internal Medicine
DX: Z80.3 Family history of malignant neoplasm of breast (principal); Z12.31 Encounter for screening mammogram for malignant neoplasm of breast; I50.43 Acute on chronic combined systolic (congestive) and diastolic (congestive) heart failure; I34.0 Nonrheumatic mitral (valve) insufficiency
CPT/HCPCS: 77063; 77067; 93306

== ENCOUNTER → 2022-12-26 12:14 | Outpatient (CLI) | payer OTHER, SELFPAY ==
--- NOTE | 2022-12-26 12:16 | DI.US.S_ITS ---
PROCEDURE: US PELVIC COMPLETE INDICATIONS: INTERMITTENT LEFT LOWER QUADRANT PAIN TECHNIQUE: Real-time scanning was performed of the pelvic organs, with image documentation. Additional endovaginal scanning was necessary due to incomplete visualization of the adnexal and endometrial structures by transabdominal scanning. COMPARISON: None. FINDINGS: Uterus: Uterus is anteverted and normal in size at 5.2 x 3.1 x 3.4 cm. The myometrium is heterogeneous, possibly due to a few fundal fibroids. The endometrium is suboptimally seen but felt to measure about 2.6 mm combined thickness. Normal vascularity in the uterus. There is a trace amount of fluid in the endometrium near the lower uterine segment. Ovaries: The right ovary measures 2.3 x 1.4 x 1.9 cm, with a calculated ovarian volume of 3.3 cc. The left ovary measures 2.4 x 0.9 x 1.8 cm, with a calculated ovarian volume of 2.0 cc. The ovaries have a normal sonographic appearance. Appropriate Color and spectral Doppler imaging of ovarian vascularity was detected. No adnexal masses are seen. Other: No pathologic free abdominal or pelvic fluid. IMPRESSION: 1. Diminutive and heterogeneous uterus may be secondary to degenerating fibroids. 2. Trace amount of endometrial fluid is likely due to cervical stenosis. 3. Appropriate size ovaries for postmenopausal female. No residual dominant follicles and no suspicious adnexal mass. We strive to produce accurate, complete, and clear reports of imaging services. To assist us in improving patient care, this report was composed using standard report templates and voice recognition software. Therefore, it may contain abnormal punctuation, insertions and/or omissions. Occasional wrong-word or sound-alike substitutions may occur. Though we review the report and make efforts to correct it, we do recommend that the report be read carefully in proper context to recognize any text inaccuracies. Dictated by: Edyta Swartz M.D. on 12/26/2022 at 18:02 Approved by: Edyta Swartz M.D. on 12/26/2022 at 18:07
== END ==
PROVIDERS: PCP Internal Medicine; Referring Provider Specialist; Visit Provider Specialist
DX: R10.32 Left lower quadrant pain (principal); D25.9 Leiomyoma of uterus, unspecified
CPT/HCPCS: 76830; 76856; 93975

== ENCOUNTER → 2023-05-12 09:27 | Outpatient (CLI) | payer OTHER, SELFPAY ==
--- NOTE | 2023-05-12 09:28 | DI.MG.S_ITS ---
BILATERAL DIGITAL SCREENING MAMMOGRAM 3D/2D WITH CAD: 05/12/2023 CLINICAL: Routine screening. Family history of breast cancer. Comparison is made to exams dated: 03/07/2022 mammogram, 11/16/2020 mammogram, and 12/15/2017 mammogram - [facility]. Both breasts are heterogeneously dense, which may obscure small masses (category c / 51-75% glandular tissue). Current study was also evaluated with a Computer Aided Detection (CAD) system. There are benign post operative findings in the right breast. No significant masses, calcifications, or other findings are seen in either breast. There has been no significant interval change. IMPRESSION: BENIGN There is no mammographic evidence of malignancy. A 1 year screening mammogram is recommended. Based on the Tyrer Cuzick model (a risk assessment model) the patient's lifetime risk is 18.8% and her 10 year risk is 6.7%. According to the ACR, ACS, and NCCN guidelines, an annual breast MRI exam along with mammogram is recommended if the patient's lifetime risk is 20% or greater. This exam was interpreted at Station ID: [id number]. NOTE: For mammograms, a report in lay terms will be sent to the patient. Approximately 15% of breast malignancies will not be visualized mammographically. In the management of a palpable breast mass, a negative mammogram must not discourage biopsy of a clinically suspicious lesion. Electronically Signed By: Michele block/jose cruz:05/12/2023 14:20:45 letter sent: Normal Exam ACR BI-RADS Category 2: Benign Finding(s) 3342F
== END ==
LOC: MAMMO 09:28
PROVIDERS: PCP Internal Medicine; Referring Provider Internal Medicine; Visit Provider Internal Medicine
DX: Z12.31 Encounter for screening mammogram for malignant neoplasm of breast (principal); Z80.3 Family history of malignant neoplasm of breast; R92.333 Mammographic heterogeneous density, bilateral breasts
CPT/HCPCS: 77063; 77067

== ENCOUNTER → 2024-04-01 06:48 | Outpatient (CLI) | payer OTHER, SELFPAY ==
--- NOTE | 2024-04-01 06:50 | DI.ECHO.S_ITS ---
[place] [facility]---------+ [facility] : : [id number] : [address] : : [id number] : : Phone: [phone] Echocardiogram Report + + :Name: ROBERTO GLASS Study Date: 04/01/2024 Height: 64 in : :Hospital ReadingLocation: Weight: 180 lb : : Gender: Female BSA: 1.9 m2 : :: 1965 Age: 59 yrs BP: 120/89 mmHg: :Reason For Study: DYSPNEA ON EXERTION : :Ordering Physician: SAVAGE, : :SIRISHA Performed By: Naomy Arteaga : :Referring: SIRISHA WAN : + + Interpretation Summary Normal sinus rhythm. Normal LV size and wall thickness. Normal wall motion and LV systolic function. Ejection fraction is 50-55%. Mild left atrial enlargement; otherwise normal chamber sizes. Mildly reduced RV function. Mitral valve is repaired by history with annuloplasty ring, neocords and P2 scallop cleft closure. There is residual posterior leaflet prolapse with mild- moderate eccentric anteroseptally directed mitral regurgitation. No mitral stenosis. Compared to prior echo obtained March 07, 2022, LV is less dynamic. Mitral regurgitation progressed from mild to moderate. However, on echo dated 11/26/2019, MR was just the same as it is on current study. So I think that MR severity was undercalled on 03/07/2022 study due to difficult acoustic windows. Procedure: A two-dimensional transthoracic echocardiogram with color flow and Doppler was performed. The study quality was technically adequate. Comparison is made with the echocardiogram of 03/07/2022. The patient was in sinus rhythm with heart rates between 63-75 bpm during the exam. Left Ventricle: The left ventricle is normal in size and wall thickness. The ejection fraction is estimated to be 50-55%. Diastolic function could not be accurately assessed due to confounding valvular disease. Right Ventricle: The right ventricle is normal size. Right ventricular systolic function is mildly reduced. Atria: The left atrium is mildly dilated. Right atrial size is normal. There is no Doppler evidence for an interatrial shunt. Mitral Valve: An annuloplasty ring is noted in the mitral position. The mitral valve mean gradient is 2.9 mmHg. There is mild to moderate mitral regurgitation. The mitral regurgitant jet is eccentrically directed. Aortic Valve: The aortic valve is trileaflet. The aortic valve opens well. There is no aortic valve stenosis. No aortic regurgitation is present. Tricuspid Valve: The tricuspid valve is normal in structure and function. There is trace tricuspid regurgitation. Pulmonary artery pressures cannot be estimated because of the lack of a measurable TR jet velocity. Pulmonic Valve: The pulmonic valve is not well visualized. There is a trace or physiologic amount of pulmonic regurgitation. Great Vessels: The aortic root is normal size. The dimensions of the ascending aorta are normal. The IVC is of normal diameter and collapses greater than 50% with a sniff. This suggests a low right atrial pressure of 3 mm Hg. Pericardium/ Pleura There is no pericardial effusion. There is an anterior echo-free space consistent with a fat pad. There is no pleural effusion. MMode/2D Measurements & Calculations LVIDd: 4.6 cm LVOT diam: 2.0 cm LVIDs: 3.4 cm Ao root diam: 3.3 cm FS: 25.5 % asc Aorta Diam: 3.6 cm IVSd: 0.89 cm Ao Arch Diam (Prox Trans): 2.7 cm LVPWd: 0.89 cm LV dutton. diameter/BSA (cm/m^2): 2.4 LV sys. diameter/BSA (cm/m^2): 1.8 LA A2 area: 22.8 cm2 RA long axis: 4.9 cm LA A4 area: 15.2 cm2 RA area: 14.5 cm2 LA length (vol): 4.5 cm RA vol: 36.2 ml LA vol: 65.7 ml RA : 19.4 ml/m2 LA vol index: 35.1 ml/m2 IVC diam: 0.98 cm RVD1 (basal): 2.6 cm RVD2 (mid): 2.1 cm TAPSE: 1.4 cm Doppler Measurements & Calculations Ao V2 max: 122.7 cm/sec LVOT Max Shailesh: 92.7 cm/sec Ao V2 mean: 87.3 cm/sec LV V1 max P.4 mmHg Ao max P.1 mmHg LV V1 VTI: 19.8 cm Ao mean P.3 mmHg TWYLA(I,D): 2.7 cm2 Ao V2 VTI: 22.4 cm TWYLA(V,D): 2.3 cm2 sev ratio: 0.89 TWYLA indexed to BSA (cm^2/m^2): 1.4 MV E max shailesh: 113.1 cm/sec PA V2 max: 63.6 cm/sec MV A max shailesh: 96.5 cm/sec PA V2 mean: 46.4 cm/sec MV E/A: 1.2 PA mean P.94 mmHg Med Peak E' Shailesh: 5.8 cm/sec PA pr(Accel): 20.8 mmHg E/E' med: 19.4 Lat Peak E' Shailesh: 9.5 cm/sec E/E' lat: 11.9 E/e' average: 15.7 MV dec time: 0.33 sec MVA(VTI): 1.4 cm2 MV V2 mean: 79.5 cm/sec SV(LVOT): 60.2 ml MV mean P.9 mmHg MV V2 VTI: 42.3 cm Electronically signed by: Sirisha Wan M.D. on Reading Physician:04/05/2024 10:09 AM
== END ==
PROVIDERS: PCP Internal Medicine; Referring Provider Internal Medicine; Visit Provider Internal Medicine
DX: I34.0 Nonrheumatic mitral (valve) insufficiency (principal); R06.09 Other forms of dyspnea; Z98.890 Other specified postprocedural states
CPT/HCPCS: 93306

== ENCOUNTER → 2024-08-30 11:40 | Outpatient (CLI) | payer OTHER, SELFPAY ==
--- NOTE | 2024-08-30 11:41 | DI.MG.S_ITS ---
MM screening mammo BI: 08/30/2024. BI-RADS: 0 CLINICAL: 59-year old female for bilateral screening mammogram. Tyrer-Cuzick lifetime risk of 17.2%. No personal or first-degree family history of breast cancer. Current reported family history of breast cancer: maternal grandmother. PRIOR EXAMS 05/12/2023, 03/07/2022, 11/16/2020, 12/15/2017. MAMMOGRAPHY TECHNIQUE: 2D and 3D (tomosynthesis) digital mammographic views obtained, with additional images as needed for full coverage. Current study was also evaluated with a Computer Aided Detection (CAD) system. DENSITY C. The breasts are heterogeneously dense, which may obscure small masses. MAMMOGRAPHY FINDINGS Right: No suspicious mass, asymmetry, microcalcification, or other abnormality seen. No significant change from comparison. Left: CC only, Outer, Middle depth: Architectural distortion needing additional imaging evaluation. IMPRESSION: Right * No evidence of malignancy. Left (Arch Distortion): CC only, Outer, Middle depth * Incomplete - architectural distortion needing additional imaging evaluation. RECOMMENDATIONS Left: CC only, Outer, Middle depth * Further evaluation with diagnostic mammography and diagnostic ultrasound. Ultrasound to be performed only if needed. OVERALL ASSESSMENT CATEGORY BI-RADS-0: Incomplete - Need Additional Imaging Evaluation. ELECTRONICALLY SIGNED: Edyta Swartz M.D. on 08/30/2024 at 04:50:42 PM PT Interpreting Station ID: [id number]
== END ==
PROVIDERS: PCP Family Medicine; Referring Provider Family Medicine; Visit Provider Family Medicine
DX: Z12.31 Encounter for screening mammogram for malignant neoplasm of breast (principal); Z80.3 Family history of malignant neoplasm of breast; R92.333 Mammographic heterogeneous density, bilateral breasts
CPT/HCPCS: 77063; 77067

== ENCOUNTER → 2025-03-14 08:52 | Outpatient (CLI) | payer OTHER, SELFPAY ==
[2025-03-14 09:14] LABS: Hematocrit 45.8 % (36-46); Hemoglobin 15.3 g/dL (12.0-16.0); Mean Corpuscular HGB Conc 33.5 % (30-36); Mean Corpuscular Hemoglobin 32.7 PG (26-34); Mean Corpuscular Volume 97.6 fL (80-100); Platelet Count 314 X10^3/uL (150-400)
[2025-03-14 09:33] LABS: Alanine Aminotransferase 32 IU/L (<35); Albumin 4.8 g/dL (3.5-5.0); Albumin Globulin Ratio 1.8 (1.0-2.8); Alkaline Phosphatase 55 U/L (38-126); Blood Urea Nitrogen 16 mg/dL (7-17); Calcium 9.9 mg/dL (8.4-10.2); Carbon Dioxide 22 mmol/L (22-32); Chloride 103 mmol/L (98-107); Cholesterol 277 mg/dL (140-199); Estimated Glomerular Filt Rate > 60 mL/min (>60); Globulin 2.7 g/dL (1.7-4.1); Glucose 132 mg/dL (70-99); HDL Cholesterol 60 mg/dL (40-60); HEMOLYSIS < 15 (0-50); Potassium 4.3 mmol/L (3.4-5.1); Sodium 137 mmol/L (137-145); Total Protein 7.5 g/dL (6.3-8.2); Triglycerides 259 mg/dL (35-150)
== END ==
PROVIDERS: PCP Family Medicine; Referring Provider Internal Medicine; Visit Provider Internal Medicine
DX: I34.0 Nonrheumatic mitral (valve) insufficiency (principal)
CPT/HCPCS: 36415; 80053; 80061; 85027